=== PATIENT | female | born 1960 | race Two or more races ===

== ENCOUNTER 2025-04-29 07:48 | Day surgery (SDC) | payer MEDICARE, MEDICAID ==
[2025-04-26 14:40] LABS: Hemoglobin 8.0 g/dL (12.2-16.2)
[2025-04-26 14:42] LABS: Hematocrit 23.5 % (36.0-46.0); Mean Corpuscular Hemoglobin 30.2 pg (28.0-32.0); Mean Corpuscular Volume 88.8 fL (80.0-100.0)
[2025-04-26 14:58] LABS: INR 1.03 (0.9-1.15); Partial Thromboplastin Time 32.2 SEC (24.5-34.5); Prothrombin Time 10.9 sec (9.3-11.8)
[2025-04-26 15:31] LABS: Alanine Aminotransferase 25 U/L (7-40); Albumin 4.3 g/dL (3.2-4.8); Alkaline Phosphatase 85 U/L (46-116); Anion Gap 8 (5-15); BUN/Creatinine Ratio 18.2 (10.0-20.0); Bilirubin, Total 0.6 mg/dL (0.2-1.0); Blood Urea Nitrogen 20 mg/dL (9-23); Calcium 9.4 mg/dL (8.7-10.4); Carbon Dioxide 28 mmol/L (20-31); Chloride 101 mmol/L (98-107); Glucose 87 mg/dL (74-106); Potassium 4.0 mmol/L (3.5-5.1); Sodium 137 mmol/L (136-145); Total Protein 6.7 g/dL (5.7-8.2)
[2025-04-26 15:43] LABS: Nucleated Red Blood Cells % 2.0 %
[2025-04-26 15:50] LABS: Anisocytosis Slight
[2025-04-26 15:52] LABS: Total Cells Counted 100.0 (100)
[2025-04-26 15:59] LABS: Urine Protein, UAD Negative (Negative)
[~2025-04-29] VITALS: Ht 160 cm; Wt 66.7 kg
[~2025-04-29 07:48] MED LIST: [UNRECOGNIZED DRUG - CODE] IV
[2025-04-29] MEDS ORDERED: MIDAZOLAM HCL 2MG/2ML 2ml VIAL (1mg/ml) ONE (09:04)
[2025-04-29] MEDS ORDERED: KETAMINE 50mg/ML 1ml syringe ONE (09:04)
[2025-04-29] MEDS ORDERED: LIDOCAINE 1% INJ PF 5ML AMP ONE (09:04)
[2025-04-29] MEDS ORDERED: fentaNYL CITRATE 100 MCG/2 ML VL ONE (09:04)
[2025-04-29] MEDS ORDERED: ONDANSETRON HCL 4 MG/2 ML VIAL ONE (09:05)
[2025-04-29] MEDS ORDERED: SODIUM CHLORIDE LOCK 0 ML ONE (09:05)
[2025-04-29] MEDS ORDERED: PROPOFOL 10 MG/ML 20 ML IV ONE ×3 (09:05→10:03)
--- NOTE | 2025-04-29 09:35 | DVHHP2 ---
GI H&P Pre-Op Assessment Date: 04/29/25 Chief complaint: Anemia, abdominal pain, vomiting, early satiety HPI: per clinic note Past medical history: per clinic note Past surgical history: per clinic note Family history: per clinic note Physical exam: General: NAD, AAOX3 HEENT: PERRL, no scleral icterus, normal hearing, gums without lesions or bleeding, oropharynx clear without erythema or exudate. Neck: Supple without enlargement of the thyroid, or lymphadenopathy. Chest: Normal size and shape, no tenderness, lung suazo clear to auscultation and percussion, nonlabored breathing. Heart: RRR, no murmur Abdomen: non-distended, no tenderness to palpation, +BS, no hepatosplenomegaly Extremities: no edema Neurological: CN II-XII intact, sensation intact in all extremities, 5+ strength in all extremities Skin: No rashes, No jaundice Assessment: - Anemia, abdominal pain, vomiting, early satiety Plan: - EGD - Colonoscopy - Risks (bleeding, infection, perforation, reaction to sedation medications and cardiopulmonary arrest) and benefit of the procedure were explained to patient. Patient agrees to undergo the procedure. SIERRA OCONNELL MD Apr 29, 2025 09:35
[2025-04-29] MEDS ORDERED: LIDOCAINE 2% (LOCAL ANESTH.) PF 5ml SDV ONE (09:46)
[2025-04-29 10:11] VITALS: PULSE 97; RESP 18; TEMP 97.1; O2SAT 100
--- NOTE | 2025-04-29 10:15 | DVHOP2 ---
Operative Report DATE OF OPERATION: 04/29/25 PROCEDURE: Upper Endoscopy. PREOPERATIVE INDICATION: The patient is a 65 -year-old female undergoing endoscopy for abdominal pain, vomiting and early satiety POSTOPERATIVE DIAGNOSES: 1. Mild gastritis PROCEDURE PERFORMED BY: Shay Reynolds SCOPE: Olympus videoendoscope. ASA CLASS: 3 PREOPERATIVE MEDICATIONS: MAC with Bertin MUHAMMAD PROCEDURE IN DETAIL: After obtaining an informed consent, the patient was placed on left lateral decubitus position. The patient was then sedated with the above medications. A bite block was placed between her teeth. The endoscope was then passed through the oropharynx, into the esophagus, and through the stomach and pylorus up to the second and third part of the duodenum. The duodenum was normal in appearance. There was mild gastritis. Gastric biopsies were obtained using cold forceps. The GE junction was normal in appearance at 32 cm. The esophagus was normal in appearance. The endoscope was then withdrawn. The patient tolerated the procedure well without difficulty. COMPLICATIONS : None SPECIMENS: Gastric biopsies DISPOSITION: D/C to home PLAN: 1. Await for biopsy result 2. Continue with Protonix. SHAY REYNOLDS MD Apr 29, 2025 10:15
[2025-04-29 10:16] VITALS: PULSE 101; RESP 23; O2SAT 100
--- NOTE | 2025-04-29 10:17 | DVHOP2 ---
Operative Report DATE OF OPERATION: 04/29/25 PROCEDURE: Colonoscopy. PREOPERATIVE INDICATION: The patient is a 65 -year-old female undergoing colonoscopy for anemia POSTOPERATIVE DIAGNOSES: 1. 2 mm sigmoid polyp was removed with cold forceps. 2. Mild diverticulosis in the left colon. 3. Internal hemorrhoids. PROCEDURE PERFORMED BY: Shay Reynolds M.D. SCOPE: Olympus videocolonoscope. ASA CLASS: 3 PREOPERATIVE MEDICATIONS: MAC with Bertin [employer] PROCEDURE IN DETAIL: After obtaining an informed consent, the patient was placed on left lateral decubitus position. She was then sedated with the above medications. A rectal examination was performed that was normal. The colonoscope was then passed through the anus into the rectosigmoid and through the descending, transverse, and ascending colon up to the cecum with visualization of the appendiceal orifice, base of the cecum and the ileocecal valve. A 2 mm sigmoid polyp was removed with cold biopsy forceps. There was mild diverticulosis in left colon. There were internal hemorrhoids. The colonoscope was then withdrawn. The patient tolerated the procedure well without difficulty. WITHDRAWAL TIME: 7 minutes QUALITY OF THE PREP: [place] Bowel Prep score: 6 COMPLICATIONS : None SPECIMENS: Colon polyp DISPOSITION: D/C to home PLAN: 1. Repeat colonoscopy base on biopsy result SHAY REYNOLDS MD Apr 29, 2025 10:17
--- NOTE | 2025-04-29 10:17 | DVHDS2 ---
Physician Discharge Progress N Final Diagnosis: Gastritis Colon polyp, diverticulosis, internal hemorrhoids Operations or Procedures: Operations or Procedures EGD with cold biopsy Colonoscopy was cold biopsy polypectomy Condition on Discharge: Good Disposition: Home Discharge Instructions: Diet: Regular Activity: No Restrictions, As Tolerated Medications: Resume with previous home medications Follow Up Care: Discharge Statement: "Patient was advised to return to the ER or call 911 if any headaches, dizziness, shortness of breath, chest pain, abdominal pain, bleeding, fevers, or worsening of medical condition. Patient was counseled about treatment plan, medications, possible side effects, patientverbalized understanding. All questions were answered to the best of my ability. This discharge took greater then 30 minutes in planning, reviewing documentation, counseling the patient, and discussing with other team members." SIERRA OCONNELL MD Apr 29, 2025 10:17
[2025-04-29 10:55] VITALS: BP 155/60; PULSE 89; RESP 19; O2SAT 98
== END 2025-04-29 11:04 | disposition home or self-care (01) ==
LOC: GI 07:48
PROVIDERS: ATTEND Internal Medicine Gastroenterology
DX: D64.9 Anemia, unspecified (principal); R68.81 Early satiety; R10.9 Unspecified abdominal pain; K29.50 Unspecified chronic gastritis without bleeding; K63.89 Other specified diseases of intestine; C78.89 Secondary malignant neoplasm of other digestive organs; K57.30 Diverticulosis of large intestine without perforation or abscess without bleeding; K63.5 Polyp of colon; K64.8 Other hemorrhoids; Z85.3 Personal history of malignant neoplasm of breast; Z98.890 Other specified postprocedural states
CPT/HCPCS: 36415; 43239; 45380; 80053; 81001; 85007; 85027; 85610; 85730; 88305; 88342; J2003; J2704; J7030; J1100; J2250; J2405